=== PATIENT | female | born 1990 | race American Indian/Alaskan Native ===

== ENCOUNTER 2019-11-25 05:22 | Emergency (ER) | payer OTHER ==
[2019-11-25 05:30] VITALS: BP 138/92
--- NOTE | 2019-11-25 08:56 | Emergency Department Report ---
Chief Complaint: Upper Respiratory Infection Stated Complaint: THROAT PAIN/CHEST PAIN Time Seen by Provider: 11/25/19 08:17 - HPI History of Present Illness: This is a 28-year-old female who complains of sore throat dry nonproductive cough states her chest hurts when she coughs denies chest pain at rest she is only having chest pain when she coughs - ROS Review of Systems: She denies chest pain without coughing no shortness of breath no vomiting no nausea and no diarrhea and no abdominal pain - Exam Vital Signs: Vital Signs 11/25/19 05:29 Temperature 98.5 F Pulse Rate 77 Respiratory 20 Rate Blood Pressure 138/92 O2 Sat by Pulse 98 Oximetry Physical Exam: Patient is awake alert and oriented 3 TMs are clear and intact bilaterally. There is no pharyngeal swelling no pharyngeal erythema no exudate. Lungs with bilateral breath sounds, S1-S2 regular Abdomen soft non distended. Skin dry and intact MSE screening note: Focused history and physical exam performed. Due to findings the following was ordered: No orders indicated pt referred out to follow up with PCP or [facility] Disposition for MSE Condition: Stable Referrals: REYNALDO MUELLER MD [Primary Care Provider] - 3-5 Days
== END 2019-11-25 09:09 | disposition left against medical advice (07) ==
LOC: ED 05:22
DX: J02.9 Acute pharyngitis, unspecified (principal); R05 Cough; R09.89 Other specified symptoms and signs involving the circulatory and respiratory systems
CPT/HCPCS: 99281